=== PATIENT | male | born 1990 | race Caucasian/White ===

== ENCOUNTER 2022-05-10 08:11 | Emergency (ER) | payer BC, SELFPAY ==
[2022-05-10 08:12] VITALS: BP 129/70; PULSE 83; RESP 16; TEMP 36.6; O2SAT 99; BMI 30.5
--- NOTE | 2022-05-10 08:31 | CT_ITS ---
STUDY: CT BRAIN WITHOUT CONTRAST REASON FOR EXAM: Male, 31 years old. Head injury -- syncope vs. Seizure RADIATION DOSAGE (If Supplied By Facility): CTDIvol = ( 44.99 ) mGy, DLP = ( 796.11 ) mGycm TECHNIQUE: Transaxial CT imaging of the brain was performed without administration of intravenous contrast material. Individualized dose optimization techniques were used for this CT. COMPARISON: No relevant priors. FINDINGS: Normal soft tissue structures. Normal calvarium. Normal size ventricles and extra-axial spaces for the patient''s age. Normal white matter tracts of the cerebral hemispheres. Normal basal ganglia and thalami. Normal brainstem. Normal cerebellum. There is no intracranial hemorrhage. There are no findings of an acute ischemic infarction. There is a 1.6 cm retention cyst or polyp in the posterior aspect of the right maxillary sinus. Mild degree of mucosal thickening of the ethmoid sinus. CT/Brain/Head without Contrast IMPRESSION: Normal unenhanced CT scan of the brain. Mucosal thickening of the ethmoid sinuses and right maxillary sinus. Electronically Signed: Alejandro Dc MD at 10:19 EST ,
--- NOTE | 2022-05-10 08:31 | EKG12_ITS ---
Test Reason : SYNCOPE Blood Pressure : / mmHG Vent. Rate : 078 BPM Atrial Rate : 078 BPM P-R Int : 142 ms QRS Dur : 080 ms QT Int : 386 ms P-R-T Axes : 042 046 038 degrees QTc Int : 440 ms Normal sinus rhythm Normal ECG Confirmed by HOPE TRUONG, STEPHEN ([id number]), index editor JAHAIRA CORDERO ([id number]) on 05/11/2022 10:57:04 AM Referred By: PRESTON Confirmed By:STEPHEN ARNETT MD
--- NOTE | 2022-05-10 08:50 | EX.ED.DYSGE1 ---
HPI History of Present Illness Chief Complaint: Dizziness Informant: patient and spouse/S.O. Narrative Narrative: Presents to the ED with significant other for evaluation of discussing with PCP this morning. Reports got up middle the night typically normal urination. Midstream felt nauseated lightheaded sweaty lasting he remembers. Significant other heard him fall, he was confused he walked to the living room fell again. He was confused for 7 minutes. Denies any tongue biting. He states 5 refill had a similar incident that he recalls midstream and woke up on the ground. No seizure history. No chest pains or shortness of breath. No recent cough. History of ADHD on medications. Occasional alcohol however not significant. Denies recent vomiting or diarrhea. Denies any urinary symptoms. Due to second event he was told to go to ED. His PCP was aware of the first event. Reports uncle had cardiac dysrhythmia requiring ablation. No known seizure history. He denied any significant urgency to have to urinate prior to his event. Prior similar symptoms: Yes PFSH PFSH Medical History ADHD Anxiety and depression Insomnia Home Medications dextroamphetamine-amphetamine 10 mg tablet (Adderall) 10 mg PO DAILY 05/10/22 [History Last Taken Unknown] dextroamphetamine-amphetamine ER 25 mg 24hr capsule,extend release (Adderall XR) 25 mg PO DAILY 05/10/22 [History Last Taken Unknown] fluoxetine 20 mg capsule (Prozac) 20 mg PO DAILY 05/10/22 [History Last Taken Unknown] trazodone 100 mg tablet 100 mg PO QHS 05/10/22 [History Last Taken Unknown] Allergy/AdvReac Type Severity Reaction Status Date / Time No Known Allergies Allergy Verified 05/10/22 08:14 Surgical History H/O knee surgery Social History Smoking Status: Former smoker ROS ROS ED Constitutional Constitutional ED: Denies chills, fever(s) or sweats Eyes Eyes: Denies change in vision ENT ENT ED: Denies dysphagia or sore throat Cardiovascular Cardiovascular: Denies chest pain, leg edema, palpitations or racing heartbeat Respiratory/Chest Respiratory/Chest: Denies cough, dyspnea or dyspnea on exertion Gastrointestinal Gastrointestinal: Denies abdominal pain, diarrhea, nausea or vomiting Genitourinary Genitourinary ED: Denies dysuria, hematuria or urinary frequency Musculoskeletal Musculoskeletal: Denies back pain, extremity pain or neck pain Integumentary Denies rash or wounds Neurologic Neurologic: Denies headache(s), paresthesias or weakness EXAM Physical Exam Const Vital Signs: 05/10/22 08:12 05/10/22 08:35 05/10/22 08:51 Temperature 97.9 F Temperature Source Temporal Pulse Rate 83 74 Respiratory Rate 16 16 Respiratory Effort Normal Non-Labored Respiratory Pattern Normal Blood Pressure 129/70 H 113/64 Blood Pressure Mean 89 80 Pulse Ox 99 95 Oxygen Delivery Method Room Air Room Air 05/10/22 10:12 Temperature Temperature Source Pulse Rate 72 Respiratory Rate 18 Respiratory Effort Respiratory Pattern Blood Pressure 104/64 Blood Pressure Mean 77 Pulse Ox 96 Oxygen Delivery Method Room Air Positive well nourished and well developed Constitutional Narrative: GCS 15. General Appearance ED: well developed and NAD HEENT Reports moist mucous membranes HEENT Narrative: No tongue abrasions or lacerations. No hemotympanums. normocephalic and atraumatic Eyes PERRL, EOMs intact bilaterally and conjunctivae normal General Eye ED: Yes normal appearance of both eyes Neck no lymphadenopathy and supple General: Negative for tenderness Chest Wall Chest: Negative for tenderness Resp normal respiratory effort and normal air movement Effort and Inspection: symmetric chest movement; Negative for respiratory distress Cardio regular rate, regular rhythm and no murmurs Peripheral Pulses: pulses 2+ throughout GI normal to inspection, nondistended, normoactive bowel sounds and non-tender Palpation: Negative for guarding or rebound tenderness present Back/Spine no CVA tenderness and no thoracic nor lumbar tenderness Extremity normal to inspection General Extremety ED: Negative for edema or tenderness General Extremity: Negative for edema Neuro oriented x3, CN's II-XII intact bilaterally and no sensory deficits noted Sensorium / Orientation: awake and alert Skin no rashes or lesions noted and no wounds MDM MDM MDM Narrative Medical decision making narrative: Patient presents syncopal episode, he was urinating however did not have any high urgency to urinate therefore less likely micturition syncope. EKG was normal labs electrolytes were normal. He had head injury with headache symptoms however prolonged confusion up to [address] brain was obtained no acute intracranial process noted ethmoid sinusitis with 1.6 cm retention cyst in the maxillary. This is not causing his symptoms. Discussed possibility of seizures. No seizures run in the family. He is back to his normal self and feels normal. He had a episode 5 months ago. He was able to set up a 48-hour Holter monitor for the patient. He will follow-up with PCP for further work-up. He is also given neurology for follow-up as an outpatient. Return precaution discussed with patient and significant other. All questions were answered. Lab Data Attestation: I reviewed the patient's lab results. Labs: Laboratory Results - last 24 hr 05/10/22 05/10/22 08:50 08:50 WBC 6.2 RBC 4.90 Hgb 15.6 Hct 44.8 MCV 91.4 MCH 31.8 MCHC 34.8 RDW Std Deviation 40.9 RDW Coeff of Shama 12.0 Plt Count 211 MPV 9.7 Immature Gran % (Auto) 0.300 Neut % (Auto) 63.2 Lymph % (Auto) 26.1 [place] % (Auto) 8.2 Eos % (Auto) 1.6 Baso % (Auto) 0.6 Absolute Neuts (auto) 3.9 Absolute Lymphs (auto) 1.62 Nucleated RBC % 0 Sodium 140 Potassium 4.3 Chloride 105 Carbon Dioxide 31.0 Anion Gap 4 L BUN 18 Creatinine 1.10 Estim Creat Clear Calc 90.97 Est GFR (MDRD) Af Amer 100 Est GFR (MDRD) Non-Af 83 BUN/Creatinine Ratio 16.4 Glucose 101 Calcium 8.9 Magnesium 2.4 TSH 0.83 Radiography Diagnostic Testing: Clinical Impression(s) from Imaging Studies Brain CT 05/10/22 08:31 IMPRESSION: Normal unenhanced CT scan of the brain. Mucosal thickening of the ethmoid sinuses and right maxillary sinus. Electronically Signed: Alejandro Dc MD at 10:19 EST , EKG Initial EKG: Attestation: I personally reviewed and interpreted this EKG as follows: Comments: Sinus rate of 78, no ST or T wave changes. Discharge Plan Triage Chief Complaint: Dizziness ED Provider: Nathan Rogers Dx/Rx/DC Orders Clinical Impression: Syncope and collapse, Concussion Instructions: Concussion Dc, ED Fainting, Uncertain Cause Prescriptions: No Action dextroamphetamine-amphetamine [Adderall] 10 mg Tablet 10 mg PO DAILY trazodone 100 mg Tablet 100 mg PO QHS fluoxetine [Prozac] 20 mg Capsule 20 mg PO DAILY dextroamphetamine-amphetamine [Adderall XR] 25 mg Capsule,Extended Release 24hr 25 mg PO DAILY Primary Care Provider: MICHELLE MONTIEL Referrals: Parth Castellon MD [Non-Staff -Ordering Privileges] - 1-2 Weeks [facility] Doctor,Out of [Non-Staff] - 5-7 Days Activity Restrictions/Additional Instructions: Your EKG and labs are all normal. You are set up for an 48-hour Holter monitor for concerns of syncopal episode. Also concern for possibility of seizure with confusion for 7 minutes. No witnessed seizure activity. He will possibly need further work-up from a neurological standpoint as an outpatient. Follow-up with neurology or your PCP. Return if any recurrent or worsening symptoms. Disposition Disposition: Home, Self Care
[2022-05-10 08:51] VITALS: BP 113/64; PULSE 74; RESP 16; O2SAT 95
[2022-05-10 08:54] LABS: Absolute Lymphocyte Count 1.62 X10^3/uL (0.83-4.51); Absolute Neutrophil Count 3.9 X10^3/uL (2.0-7.7); Basophil# 0.04 X10^3/uL; Basophil% 0.6 % (0-1); Eosinophils% 1.6 % (0-5); Hematocrit 44.8 % (40-54); Hemoglobin 15.6 g/dL (13.0-16.5); Lymphocyte # 1.62 X10^3/ul (0.83-4.51); Lymphocyte % 26.1 % (19-41); Mean Corp Hgb Conc 34.8 g/dL (32-36); Mean Corpuscular Hgb 31.8 pg (27.0-32.0); Mean Corpuscular Volume 91.4 fL (80-94); Mean Platelet Vol. 9.7 fl (6.2-12.0); Monocyte# 0.51 X10^3/uL; Monocyte% 8.2 % (0-10); NRBC Flagged by Analyzer 0 % (0-5); Neutrophil # 3.91 X10^3/uL (2.7-7.7); Neutrophil % 63.2 % (47-70); Platelet Count 211 K/mm3 (150-450); RBC Distribution Width SD 40.9 fl (35.1-43.9); White Blood Count 6.2 K/mm3 (4.4-11.0)
[2022-05-10 09:16] LABS: Anion Gap 4 (5-15); BUN 18 mg/dL (7-18); BUN/Creat Ratio 16.4 RATIO (10-20); Calcium,Total 8.9 mg/dL (8.5-10.1); Chloride 105 mmol/L (98-107); EST Glomerular Filtration Rate 83 mL/min (>60); Est Glom Filt Rate - Afr Amer 100 mL/min (>60); Estimated Creatinine Clearance 90.97 ml/min; Glucose 101 mg/dL (74-106); Magnesium 2.4 mg/dL (1.6-2.6); Potassium 4.3 mmol/L (3.5-5.1); Sodium Level 140 mmol/L (136-145); Thyroid Stim Hormone (TSH) 0.83 uIU/mL (0.358-3.74)
[2022-05-10 10:12] VITALS: BP 104/64; PULSE 72; RESP 18; O2SAT 96
[2022-05-10 10:26] VITALS: BP 104/63; PULSE 74; RESP 16; TEMP 36.8; O2SAT 95
== END 2022-05-10 10:58 | disposition home or self-care (01) ==
PROVIDERS: Emergency Provider Emergency Medicine; PCP Family Medicine; Visit Provider Emergency Medicine
DX: R55 Syncope and collapse (principal); S06.0X0A Concussion without loss of consciousness, initial encounter; F90.9 Attention-deficit hyperactivity disorder, unspecified type; F32.A Depression, unspecified; F41.9 Anxiety disorder, unspecified; Z79.899 Other long term (current) drug therapy; Z87.891 Personal history of nicotine dependence; W19.XXXA Unspecified fall, initial encounter
CPT/HCPCS: 70450; 80048; 83735; 84443; 85025; 93005; 99284; A4216

== ENCOUNTER → 2022-05-10 | Outpatient (CLI) | payer BC, SELFPAY | END | disposition home or self-care (01) | LOC: PSN 10:26 | PROVIDERS: PCP Family Medicine; Visit Provider Emergency Medicine | DX: R55 Syncope and collapse (principal) | CPT/HCPCS: 93225; 93226 ==